=== PATIENT | female | born 1960 | race American Indian/Alaskan Native ===

== ENCOUNTER 2019-04-01 14:54 | Emergency (ER) | payer SELFPAY ==
[2019-04-01 15:06] VITALS: BP 111/77
== END 2019-04-01 19:00 | disposition left against medical advice (07) ==
LOC: ED 14:54
DX: F41.9 Anxiety disorder, unspecified (principal); Z53.21 Procedure and treatment not carried out due to patient leaving prior to being seen by health care provider